=== PATIENT | male | born 1980 | race Caucasian/White ===

== ENCOUNTER 2020-06-06 18:10 | Emergency (ER) | payer BC ==
[2020-06-06] MEDS ORDERED: LISINOPRIL5 MG PO (19:40)
[2020-06-06] MEDS ORDERED: MOTRIN800 MG PO (20:10)
[2020-06-06 20:16] VITALS: BP 137/94
== END 2020-06-06 20:18 | disposition home or self-care (01) | DRG 563 ==
LOC: ED 18:10
PROC: 2W3KX1Z Immobilization of Left Finger using Splint (ICD-10-PCS; principal; 2020-06-06)
DX: S63.615A Unspecified sprain of left ring finger, initial encounter (principal); M77.8 Other enthesopathies, not elsewhere classified; I10 Essential (primary) hypertension; X58.XXXA Exposure to other specified factors, initial encounter

== ENCOUNTER 2021-01-15 14:10 | Emergency (ER) | payer SELFPAY ==
[~2021-01-15] VITALS: Ht 182.9 cm; Wt 118.0 kg
[~2021-01-15 14:10] MED LIST: LISINOPRIL5 MG PO; MOTRIN800 MG PO
[2021-01-15 15:24] VITALS: BP 121/79
== END 2021-01-15 15:30 | disposition home or self-care (01) | DRG 392 ==
LOC: ED 14:10
DX: R11.2 Nausea with vomiting, unspecified (principal); F17.210 Nicotine dependence, cigarettes, uncomplicated